=== PATIENT | male | born 1965 | race American Indian/Alaskan Native ===

== ENCOUNTER 2016-06-12 07:36 | Emergency (ER) | payer OTHER ==
[2016-06-12 07:49] VITALS: BP 124/73; PULSE 91; RESP 18; TEMP 98.5; O2SAT 97
--- NOTE | 2016-06-12 08:26 | ED PDOC ---
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 Last evening a strap gave way and some boxes fell off of his truck striking his lower back. There is a history of low back injury. Patient took some Motrin and is feeling much better. He was directed to the emergency department by his supervisor mixing. He states that he does not want any x-rays and he is actually feeling much better and wants the incident documented and he wants to go home to go to sleep. Past Medical History - Infectious Disease Hx of Infectious Diseases: None - Tetanus Immunization Tetanus Immunization: Unknown - Cardiac Hx Hypertension: No - Psychiatric Hx Substance Use: No - Surgical History Hx Abdominal Aortic Aneurysm Repair: No - Anesthesia Hx Anesthesia: No Hx Anesthesia Reactions: No Hx Malignant Hyperthermia: No Family/Social History - Physician Review Nursing Documentation Reviewed: Yes Family/Social History: Unknown Family HX Smoking Status: Light Smoker < 10 Cigarettes Daily Hx Alcohol Use: Yes Hx Substance Use: No Allergies/Home Meds Allergies/Adverse Reactions: Allergies No Known Allergies Allergy (Verified 06/12/16 07:49) Review of Systems - Physician Review All systems were reviewed & negative as marked: Yes - Review of Systems Respiratory: Normal Cardiovascular: Normal Gastrointestinal: Normal Genitourinary Male: Normal Neurological: Normal Physical Exam Vital Signs Temp Pulse Resp BP Pulse Ox 06/12/16 07:43 98.5 F 91 H 18 124/73 97 Temperature: Afebrile Blood Pressure: Normal Pulse: Regular Respiratory Rate: Normal Appearance: Positive for: Well-Appearing, Non-Toxic, Comfortable Pain Distress: None Mental Status: Positive for: Alert and Oriented X 3 - Systems Exam Head: Present: Atraumatic, Normocephalic Neck: Present: Normal Range of Motion Respiratory/Chest: Present: Clear to Auscultation, Good Air Exchange. No: Respiratory Distress, Accessory Muscle Use Cardiovascular: Present: Regular Rate and Rhythm, Normal S1, S2. No: Murmurs Back: Present: Normal Inspection. No: CVA Tenderness, Midline Tenderness, Paraspinal Tenderness, Pain with Leg Raise Upper Extremity: Present: Normal Inspection. No: Cyanosis, Edema Lower Extremity: Present: Normal Inspection. No: Edema Neurological: Present: GCS=15, CN II-XII Intact, Speech Normal Skin: Present: Warm, Dry, Normal Color. No: Rashes Disposition/Present on Arrival - Present on Arrival Any Indicators Present on Arrival: No History of DVT/PE: No History of Uncontrolled Diabetes: No Urinary Catheter: No History of Decub. Ulcer: No History Surgical Site Infection Following: None - Disposition Have Diagnosis and Disposition been Completed?: Yes Diagnosis: Back contusion Disposition: HOME/ ROUTINE Disposition Time: 08:26 Patient Plan: Discharge Condition: GOOD Discharge Instructions (ExitCare): Acute Low Back Pain (ED) Additional Instructions: Rest and ice. Motrin from previous injury. Follow-up with PMD. Follow-up in the ER as needed. Flexeril as needed. Prescriptions: Cyclobenzaprine [Flexeril] 5 mg PO Q8 #15 tab Forms: WORK NOTE
== END 2016-06-12 08:36 | disposition home or self-care (01) ==
LOC: ED 07:36
DX: S30.0XXA Contusion of lower back and pelvis, initial encounter (principal); W22.8XXA Striking against or struck by other objects, initial encounter; Y93.89 Activity, other specified; Y92.89 Other specified places as the place of occurrence of the external cause; Y99.0 Civilian activity done for income or pay

== ENCOUNTER 2016-07-07 20:53 | Emergency (ER) | payer OTHER ==
[2016-07-07 21:08] VITALS: BP 124/79; PULSE 87; RESP 17; TEMP 98.4; O2SAT 99
[2016-07-07] MEDS ORDERED: Oxycodone/Acetaminophen 5/325 mg Tab PO STA (22:01)
[2016-07-07] MEDS ORDERED: Lidocaine 5% Patch TD STA (22:01)
--- NOTE | 2016-07-07 22:06 | ED PDOC ---
Arrival/HPI - General Historian: Patient <Terry Harmon - Last Filed: 07/07/16 22:38> <Larry Quintero - Last Filed: 07/07/16 23:20> - General Chief Complaint: Back Pain Time Seen by Provider: 07/07/16 22:01 - History of Present Illness Narrative History of Present Illness (Text): 07/07/16 22:01 51 y/o male, pmh including chronic neck and back pain from the previous injury with the MRI performed at the [facility] doctor and following up with the neurologist and [facility] doctors, nkda, c/o neck and back pain today after going to work with no new injury or fall. Aching pain, feeling stiffness , no urinary symptoms, no chest pain or shortness of breath, no urinary or bowel incontinence or retention, no rash, no other medical or psychological complaints. (Terry Harmon) Past Medical History - Provider Review Nursing Documentation Reviewed: Yes - Infectious Disease Hx of Infectious Diseases: None - Tetanus Immunization Tetanus Immunization: Unknown - Cardiac Hx Cardiac Disorders: No Hx Hypertension: No - Pulmonary Hx Respiratory Disorders: No - Neurological Hx Neurological Disorder: No - HEENT Hx HEENT Disorder: No - Renal Hx Renal Disorder: No - Endocrine/Metabolic Hx Endocrine Disorders: No - Hematological/Oncological Hx Blood Disorders: No - Integumentary Hx Dermatological Disorder: No - Musculoskeletal/Rheumatological Hx Back Pain: Yes - Gastrointestinal Hx Gastrointestinal Disorders: No - Genitourinary/Gynecological Hx Genitourinary Disorders: No - Psychiatric Hx Psychophysiologic Disorder: No Hx Substance Use: No - Surgical History Hx Abdominal Aortic Aneurysm Repair: No - Anesthesia Hx Anesthesia: No Hx Anesthesia Reactions: No Hx Malignant Hyperthermia: No <Terry Harmon - Last Filed: 07/07/16 22:38> Family/Social History - Physician Review Nursing Documentation Reviewed: Yes Family/Social History: Unknown Family HX Smoking Status: Light Smoker < 10 Cigarettes Daily Hx Alcohol Use: Yes Frequency of alcohol use: Socially Hx Substance Use: No <Terry Harmon - Last Filed: 07/07/16 22:38> Allergies/Home Meds <Terry Harmon - Last Filed: 07/07/16 22:38> <Larry Quintero - Last Filed: 07/07/16 23:20> Allergies/Adverse Reactions: Allergies No Known Allergies Allergy (Verified 07/07/16 21:02) Review of Systems - Review of Systems Constitutional: absent: Fatigue, Fevers Eyes: absent: Vision Changes ENT: absent: Hearing Changes Respiratory: absent: Cough Cardiovascular: absent: Chest Pain Gastrointestinal: absent: Abdominal Pain, Nausea, Vomiting Genitourinary Male: absent: Dysuria, Frequency, Hematuria, Urinary Output Changes Musculoskeletal: Back Pain, Neck Pain. absent: Arthralgias Skin: absent: Rash, Pruritis, Skin Lesions <Terry Harmon - Last Filed: 07/07/16 22:38> Physical Exam Vital Signs Reviewed: Yes Temperature: Afebrile Blood Pressure: Normal Pulse: Regular Respiratory Rate: Normal Appearance: Positive for: Well-Appearing, Non-Toxic, Comfortable Pain Distress: Moderate Mental Status: Positive for: Alert and Oriented X 3 - Systems Exam Head: Present: Atraumatic, Normocephalic Pupils: Present: PERRL Extroacular Muscles: Present: EOMI Conjunctiva: Present: Normal Mouth: Present: Moist Mucous Membranes Neck: Present: Normal Range of Motion, Trachea Midline. No: MIDLINE TENDERNESS , Paraspinal Tenderness, Lymphadenopathy Respiratory/Chest: Present: Clear to Auscultation, Good Air Exchange. No: Respiratory Distress, Accessory Muscle Use Cardiovascular: Present: Regular Rate and Rhythm, Normal S1, S2. No: Murmurs Abdomen: Present: Normal Bowel Sounds. No: Tenderness, Distention, Peritoneal Signs Back: Present: Normal Inspection, Other (Thoracic to LS spine: no midline tenderness or step off, no paraspinal tenderness, FROM without limitation, sensation intact, motor 5/5, no saddling gait. ). No: CVA Tenderness, Midline Tenderness, Paraspinal Tenderness, Decubitus Ulcer Upper Extremity: Present: Normal Inspection. No: Cyanosis, Edema Lower Extremity: Present: Normal Inspection. No: Edema Neurological: Present: GCS=15, CN II-XII Intact, Speech Normal Skin: Present: Warm, Dry, Normal Color. No: Rashes Psychiatric: Present: Alert, Oriented x 3, Normal Insight, Normal Concentration <Terry Harmon - Last Filed: 07/07/16 22:38> Medical Decision Making <Terry Harmon - Last Filed: 07/07/16 22:38> <Larry Quintero - Last Filed: 07/07/16 23:20> ED Course and Treatment: 07/07/16 22:07 -pt. refused reperforming the imaging as he had it done 1 week ago show no fracture or subluxation. -Toradol IM/lidoderm patch/percocet. 07/07/16 22:38 -pt. feels much better, request to be discharged home, will discharge home. -Discharge home naproxen, flexeril, lidoderm patch, heat compression, avoid strenuous exercise or activity, follow up with your own pmd and workman's comp within 2 days, return to the ER for any new or worsening signs or symptoms. ( Terry Harmon) - Medication Orders Current Medication Orders: Discontinued Medications Ketorolac Tromethamine (Toradol) 60 mg IM STAT STA Stop: 07/07/16 22:02 Last Admin: 07/07/16 22:26 Dose: 60 mg Lidocaine (Lidoderm) 2 ea TD STAT STA Stop: 07/07/16 22:02 Last Admin: 07/07/16 22:28 Dose: 2 ea Oxycodone/Acetaminophen (Percocet 5/325 Mg Tab) 1 tab PO STAT STA Stop: 07/07/16 22:02 Last Admin: 07/07/16 22:28 Dose: 1 tab - PA / HANDYMAN / Resident Statement NORAH has reviewed & agrees with the documentation as recorded. <Terry Harmon - Last Filed: 07/07/16 22:38> - PA / HANDYMAN / Resident Statement NORAH has reviewed & agrees with the documentation as recorded. NORAH has examined the patient and agrees with the treatment plan. <Larry Quintero - Last Filed: 07/07/16 23:20> Disposition/Present on Arrival - Present on Arrival Any Indicators Present on Arrival: No History of DVT/PE: No History of Uncontrolled Diabetes: No Urinary Catheter: No History of Decub. Ulcer: No History Surgical Site Infection Following: None - Disposition Have Diagnosis and Disposition been Completed?: Yes Disposition Time: 22:39 Patient Plan: Discharge <Terry Harmon - Last Filed: 07/07/16 22:38> <Larry Quintero - Last Filed: 07/07/16 23:20> - Disposition Diagnosis: Chronic neck and back pain Disposition: HOME/ ROUTINE Condition: IMPROVED Additional Instructions: Discharge home naproxen, flexeril, lidoderm patch, heat compression, avoid strenuous exercise or activity, follow up with your own pmd and workman's comp within 2 days, return to the ER for any new or worsening signs or symptoms. Prescriptions: Cyclobenzaprine [Cyclobenzaprine HCl] 10 mg PO TID PRN #21 tab PRN Reason: Other Lidocaine 5% [Lidoderm] 1 patch TOP DAILY PRN #10 patch PRN Reason: Other Naproxen 500 mg PO BID PRN #20 tab PRN Reason: Other Referrals: [facility] [place] [Outside] - Follow up with primary Maye Mcnulty MD [Staff Provider] - Follow up with primary Forms: WORK NOTE
== END 2016-07-07 22:45 | disposition home or self-care (01) ==
LOC: ED 20:53
DX: M54.2 Cervicalgia (principal); M54.9 Dorsalgia, unspecified; G89.29 Other chronic pain; F17.210 Nicotine dependence, cigarettes, uncomplicated
CPT/HCPCS: 96372; 99282; J1885

== ENCOUNTER 2018-04-30 19:29 | Emergency (ER) | payer OTHER ==
[2018-04-30 20:48] VITALS: BMI 30.7
[2018-04-30 20:57] VITALS: RESP 18; TEMP 98.2
--- NOTE | 2018-04-30 23:01 | ED PDOC ---
Arrival/HPI - General Historian: Patient - History of Present Illness Narrative History of Present Illness (Text): 04/30/18 22:56 52-year-old male with a history of herniated disks currently in the process of arranging for back surgery presents today with an episode of right-sided back pain that was sharp sudden pain that caused the patient to drop to the ground in pain. Patient states he had difficulty straightening his back out afterwards. Patient states he took 800 mg of ibuprofen around 2:30 in the afternoon and the pain has improved. Patient states he still has a achy pain in the right side of the back. He denies radiation of pain into the leg at present time. Patient denies bladder or bowel incontinence. no dysuria or urinary frequency.Patient denies hitting his head. No abdominal pain. No nausea or vomiting. Patient denies saddle paresthesias. Patient denies fevers or chills. No other complaints <Shreya Bender - Last Filed: 04/30/18 22:56> <Larry Quintero - Last Filed: 05/01/18 00:28> - General Chief Complaint: Back Pain Time Seen by Provider: 04/30/18 21:59 Past Medical History - Provider Review Nursing Documentation Reviewed: Yes - Travel History Have you recently traveled outside [place] w/in the past 3 mons?: No - Infectious Disease Hx of Infectious Diseases: None - Tetanus Immunization Tetanus Immunization: Unknown - Cardiac Hx Cardiac Disorders: No Hx Hypertension: No - Pulmonary Hx Respiratory Disorders: No - Neurological Hx Neurological Disorder: No - HEENT Hx HEENT Disorder: No - Renal Hx Renal Disorder: No - Endocrine/Metabolic Hx Endocrine Disorders: No - Hematological/Oncological Hx Blood Disorders: No - Integumentary Hx Dermatological Disorder: No - Musculoskeletal/Rheumatological Hx Back Pain: Yes Hx Herniated Disk: Yes - Gastrointestinal Hx Gastrointestinal Disorders: No - Genitourinary/Gynecological Hx Genitourinary Disorders: No - Psychiatric Hx Psychophysiologic Disorder: No Hx Substance Use: No - Surgical History Hx Abdominal Aortic Aneurysm Repair: No - Anesthesia Hx Anesthesia: No Hx Anesthesia Reactions: No Hx Malignant Hyperthermia: No <Shreya Bender - Last Filed: 04/30/18 22:56> Family/Social History - Physician Review Nursing Documentation Reviewed: Yes Family/Social History: Unknown Family HX Smoking Status: Light Smoker < 10 Cigarettes Daily Hx Alcohol Use: Yes Hx Substance Use: No <Shreya Bender - Last Filed: 04/30/18 22:56> Allergies/Home Meds <Shreya Bender - Last Filed: 04/30/18 22:56> <Larry Quintero - Last Filed: 05/01/18 00:28> Allergies/Adverse Reactions: Allergies No Known Allergies Allergy (Verified 07/07/16 21:02) Home Medications: Home Meds Medication Instructions Recorded Confirmed Ibuprofen [Motrin Tab] 1 tab PO PRN PRN 04/30/18 04/30/18 Review of Systems - Review of Systems Constitutional: absent: Fatigue, Fevers Respiratory: absent: SOB, Cough Cardiovascular: absent: Chest Pain, Palpitations Gastrointestinal: absent: Abdominal Pain, Constipation, Diarrhea, Nausea, Vomiting Genitourinary Male: absent: Dysuria, Frequency, Hematuria Musculoskeletal: Back Pain. absent: Neck Pain Skin: absent: Rash, Pruritis Neurological: absent: Headache, Dizziness Psychiatric: absent: Anxiety, Depression <Shreya Bender - Last Filed: 04/30/18 22:56> Physical Exam Vital Signs Reviewed: Yes Vital Signs Temp Pulse Resp BP Pulse Ox 04/30/18 20:56 98.2 F 83 18 126/87 98 Temperature: Afebrile Blood Pressure: Normal Pulse: Regular Respiratory Rate: Normal Appearance: Positive for: Well-Appearing, Non-Toxic, Comfortable Pain Distress: None Mental Status: Positive for: Alert and Oriented X 3 - Systems Exam Head: Present: Atraumatic Mouth: Present: Moist Mucous Membranes Neck: Present: Normal Range of Motion Respiratory/Chest: Present: Clear to Auscultation, Good Air Exchange. No: Respiratory Distress, Accessory Muscle Use Cardiovascular: Present: Regular Rate and Rhythm, Normal S1, S2. No: Murmurs Abdomen: No: Tenderness, Rebound, Guarding Back: Present: Normal Inspection, Paraspinal Tenderness (+ minimal right low lumbar paraspinal tenderness. no erythema, no edema, no ecchymosis. ). No: CVA Tenderness, Midline Tenderness Upper Extremity: Present: Normal Inspection Lower Extremity: Present: Normal Inspection, Normal ROM Neurological: Present: GCS=15, Speech Normal, Motor Func Grossly Intact, Normal Sensory Function, Gait Normal Skin: Present: Warm, Dry, Normal Color. No: Rashes Psychiatric: Present: Alert, Oriented x 3 <Shreya Bender - Last Filed: 04/30/18 22:56> Vital Signs Temp Pulse Resp BP Pulse Ox 04/30/18 23:06 78 18 124/79 100 04/30/18 20:56 98.2 F 83 18 126/87 98 <IngridLarry - Last Filed: 05/01/18 00:28> Medical Decision Making ED Course and Treatment: 04/30/18 22:59 52-year-old male with a history of chronic back pain presenting with slight right sided low back pain that improved at home after 800 mg of ibuprofen around 2:30 this afternoon. Patient ambulating with a steady gait nontoxic well-appearing no distress with stable vital signs No midline bony tenderness. Minimal right sided paraspinal tenderness. Patient denies numbness weakness tingling in the extremity is ambulating with a steady gait. Will discharge home with Motrin and Flexeril. Patient advised to follow-up with the back specialist within the next 2 days. Patient was advised immediate return if symptoms worsen persist or if new concerning symptoms develop Patient verbalizes understanding of discharge instructions and need for immediate followup. all aspects of this case were discussed the attending of record. Impression: Back pain Motrin 800 mg every 8 hours as needed for pain Flexeril one tablet every 68 hours as needed for muscle spasms: May cause drowsiness Follow-up with the primary care physician within the next 2 days Follow-up with the back specialist within the next 2 days Return immediately if symptoms worsen persist or if new concerning symptoms develop Reassessment Condition: Re-examined, Improved - Medication Orders Current Medication Orders: Discontinued Medications Diazepam (Valium) 5 mg PO ONCE ONE Stop: 04/30/18 22:23 Last Admin: 04/30/18 22:35 Dose: 5 mg Ketorolac Tromethamine (Toradol) 60 mg IM STAT STA Stop: 04/30/18 22:23 Last Admin: 04/30/18 22:35 Dose: 60 mg MAR Pain Assessment Document 04/30/18 22:35 CNR (Rec: 04/30/18 22:35 CNR [id number]) Pain Reassessment Is this a pain reassessment? No IM Administration Charges Document 04/30/18 22:35 CNR (Rec: 04/30/18 22:35 CNR [id number]) Injection Site MAR Injection Site Left Deltoid Charges for Administration # of IM Administrations 1 <Shreya Bender - Last Filed: 04/30/18 22:56> - Medication Orders Current Medication Orders: Discontinued Medications Diazepam (Valium) 5 mg PO ONCE ONE Stop: 04/30/18 22:23 Last Admin: 04/30/18 22:35 Dose: 5 mg Ketorolac Tromethamine (Toradol) 60 mg IM STAT STA Stop: 04/30/18 22:23 Last Admin: 04/30/18 22:35 Dose: 60 mg MAR Pain Assessment Document 04/30/18 22:35 CNR (Rec: 04/30/18 22:35 CNR [id number]) Pain Reassessment Is this a pain reassessment? No IM Administration Charges Document 04/30/18 22:35 CNR (Rec: 04/30/18 22:35 CNR [id number]) Injection Site MAR Injection Site Left Deltoid Charges for Administration # of IM Administrations 1 <Larry Quintero - Last Filed: 05/01/18 00:28> - PA / FAMILY MANAGER / Resident Statement / has reviewed & agrees with the documentation as recorded. <Larry Quintero - Last Filed: 05/01/18 00:28> Disposition/Present on Arrival - Present on Arrival Any Indicators Present on Arrival: No History of DVT/PE: No History of Uncontrolled Diabetes: No Urinary Catheter: No History of Decub. Ulcer: No History Surgical Site Infection Following: None - Disposition Have Diagnosis and Disposition been Completed?: Yes Disposition Time: 23:01 Patient Plan: Discharge <Shreya Bender - Last Filed: 04/30/18 22:56> <Larry Quintero - Last Filed: 05/01/18 00:28> - Disposition Diagnosis: Back pain Disposition: HOME/ ROUTINE Condition: GOOD Discharge Instructions (ExitCare): Low Back Pain in Adults Additional Instructions: Motrin 800 mg every 8 hours as needed for pain Flexeril one tablet every 68 hours as needed for muscle spasms: May cause drowsiness Follow-up with the primary care physician within the next 2 days Follow-up with the back specialist within the next 2 days Return immediately if symptoms worsen persist or if new concerning symptoms develop Prescriptions: Cyclobenzaprine [Cyclobenzaprine HCl] 10 mg PO Q8 #10 tab Referrals: Zack Morrison MD [Staff Provider] - Follow up with primary Dustin Shay MD [Staff Provider] - Follow up with primary Heidi Champion MD [Medical Doctor] - Follow up with primary [facility] [Outside] - Follow up with primary Forms: [employer] (Arabic), WORK NOTE
[2018-04-30 23:10] VITALS: BP 124/79; PULSE 78; O2SAT 100
== END 2018-04-30 23:06 | disposition home or self-care (01) ==
LOC: ED 19:29
DX: M54.9 Dorsalgia, unspecified (principal); F17.210 Nicotine dependence, cigarettes, uncomplicated
CPT/HCPCS: 96372; 99283; J1885